=== PATIENT | female | born 1980 | race Caucasian/White ===

== ENCOUNTER 2017-03-19 07:52 | Day surgery (SDC) | payer OTHER ==
[~2017-03-19 07:52] MED LIST: ACET500CAP PO; ADVIL PO; AMB10 PO; ASA5GR PO; ATEN25 PO; BREO ELLIPTA INH; BUM1 PO; DUONEB INH; FISH-EPA1000 MG PO; FOLIC ACID400 MC1 PO; FOLIC PO; GLUCPH PO; HUMALOGMIX SC; HYDROCHLOROT25 MG PO; IBU800 PO; KLONO1 PO; KLONO2 PO; KLOR-CON M1010 MEQ PO; LISINOPRIL40 MG PO; LOP25 PO; LORCET PO; MAXIMUM D3 PO; MONODOX100 MG PO; MSCONTIN PO; NEUR300 PO; NEUR600 PO; NORV10 PO; NOVOLOG SC; OXYCONTIN15 MG PO; P10 PO; P20 PO; PR25 PO; PRIN10 PO; PROVHFA INH; RANITIDINE300 MG PO; ROXICODONE15 MG PO; ROXICODONE30 MG PO; SEROQUEL25 PO; ZANAFLEX 4 MG TA4 MG PO
[2017-03-19 09:12] LABS: BASOPHILS 0.2 %; BASOPHILS ABSOLUTE 0.02 10/3/uL (0.0-0.16); EOSINOPHILS 1.5 %; EOSINOPHILS ABSOLUTE 0.14 10/3/uL (0.0-0.53); HEMATOCRIT 41.1 % (36.0-48.0); HEMOGLOBIN 13.5 g/dL (12.0-16.0); IMMATURE GRANULOCYTES 0.7 %; IMMATURE GRANULOCYTES ABSOLUTE 0.07 10/3/uL (0.0-0.11); LYMPHOCYTES 28.4 %; LYMPHOCYTES ABSOLUTE 2.72 10/3/uL (0.67-4.30); MEAN CORPUS HGB CONC 32.8 g/dL (32.0-36.0); MEAN CORPUSCULAR HEMOGLOB 27.6 pg (26.0-34.0); MEAN PLATELET VOLUME 8.7 fL (9.2-13.0); MONOCYTES 7.9 %; MONOCYTES ABSOLUTE 0.76 10/3/uL (0.21-1.20); NEUTROPHILS 61.3 %; NEUTROPHILS ABSOLUTE 5.86 10/3/uL (2.02-8.40); PLATELET COUNT 314 10/3/uL (150-400); RBC DISTRIBUTION WIDTH 12.8 % (12.0-16.0); RED CELL COUNT 4.89 10/6/uL (4.0-5.6); RETICULOCYTE COUNT 2.5 % (0.5-2.5); RETICULOCYTE COUNT ABSOLUTE 121.8 10/3/uL (20.2-119.8); WHITE BLOOD CELLS 9.6 10/3/uL (4.5-10.5)
[2017-03-19 09:16] LABS: MANUAL DIFF NO %
[2017-03-19 09:27] LABS: ALBUMIN 3.4 G/DL (3.5-5.0); ALKALINE PHOSPHATASE 99 U/L (45-117); CALCIUM, SERUM 8.8 MG/DL (8.5-10.4); CHLORIDE, SERUM 98 MMOL/L (96-112); CO2 (CARBON DIOXIDE) 29 MMOL/L (24-34); CREATININE 0.97 MG/DL (0.55-1.02); DIRECT BILIRUBIN 0.1 MG/DL (0.0-0.4); GFR AFRICAN AMERICAN 86 ML/MIN (>=60); GFR NON AFRICAN AMERICAN 75 ML/MIN (>=60); GLUCOSE, SERUM 205 MG/DL (60-99); INDIRECT BILIRUBIN(NOT ORDER) 0.3 MG/DL (0.1-0.9); SGPT(ALT) 55 U/L (5-65); SODIUM, SERUM 135 MMOL/L (135-148); TOTAL BILIRUBIN 0.4 MG/DL (0-1.2)
[2017-03-19 09:31] LABS: BUN (BLOOD UREA NITROGEN) 19 MG/DL (6-23); POTASSIUM, SERUM 3.6 MMOL/L (3.5-5.3); SGOT(AST) 37 U/L (5-40)
== END 2017-03-19 11:46 | disposition home or self-care (01) ==
LOC: SDC 07:52
PROVIDERS: Anesthesiology; Pathology Cytopathology
PROC: 07DR3ZX Extraction of Iliac Bone Marrow, Percutaneous Approach, Diagnostic (ICD-10-PCS; principal; 2017-03-19 11:00)
DX: D72.829 Elevated white blood cell count, unspecified (principal); I12.9 Hypertensive chronic kidney disease with stage 1 through stage 4 chronic kidney disease, or unspecified chronic kidney disease; E11.22 Type 2 diabetes mellitus with diabetic chronic kidney disease; N18.9 Chronic kidney disease, unspecified; I25.10 Atherosclerotic heart disease of native coronary artery without angina pectoris; I48.92 Unspecified atrial flutter; E66.01 Morbid (severe) obesity due to excess calories; G47.33 Obstructive sleep apnea (adult) (pediatric); Z98.890 Other specified postprocedural states; Z99.89 Dependence on other enabling machines and devices; Z86.73 Personal history of transient ischemic attack (TIA), and cerebral infarction without residual deficits; Z88.8 Allergy status to other drugs, medicaments and biological substances; Z79.899 Other long term (current) drug therapy; Z79.4 Long term (current) use of insulin
CPT/HCPCS: 80048; 80076; 82962; 84703; 85025; 85045; 88305; 88311; 88313; 88360